=== PATIENT | male | born 1965 | race Caucasian/White ===

== ENCOUNTER 2023-04-26 07:14 | Day surgery (SDC) | payer OTHER, MEDICAID ==
[2023-04-26] VITALS (9 sets, daily range): BP systolic 106–128; BP diastolic 64–79; PULSE 78–87; RESP 10–15; TEMP 98.1; O2SAT 93–99
[~2023-04-26] VITALS: Ht 182.9 cm; Wt 106.6 kg
[~2023-04-26 07:14] MED LIST: CIME1TAB7 PO; CYCL-614 PO; GEMF-66 PO; HYDR-4798 PO; ICOS1CAP OR; INSU100I33 SC; LISI10TA34 PO; METO25TA93 PO; MORP15TA PO
[2023-04-26] MEDS ORDERED: LIDOCAINE 2%HCL (LOCAL ANESTH.) INJ 20ML MDV ONE (07:51)
[2023-04-26] MEDS ORDERED: IODIXANOL 320MG/ML 100ML BTL IV ONE (07:51)
[2023-04-26] MEDS ORDERED: HEPARIN SODIUM (PORCINE) 5000 UNITS/ML 1ML VIAL ONE (08:04)
[2023-04-26] MEDS ORDERED: VERAPAMIL 2.5MG/ML INJ 2ML VIAL IV ONE (08:04)
[2023-04-26] MEDS ORDERED: ANGIOMAX 250 MG VIAL IV ONE (08:04)
[2023-04-26] MEDS ORDERED: fentaNYL CITRATE 100 MCG/2 ML VL ONE (08:04)
[2023-04-26] MEDS ORDERED: SODIUM CHL 0.9% 0 ML ONE (08:05)
[2023-04-26] MEDS ORDERED: MIDAZOLAM HCL 2MG/2ML 2ml VIAL (1mg/ml) ONE (08:05)
[2023-04-26] MEDS: ACETAMINOPHEN 500 MG TAB PO ONE ×2 (10:54→18:27)
== END 2023-04-26 11:25 | disposition home or self-care (01) ==
LOC: CATH 07:14
PROVIDERS: ATTEND Internal Medicine
DX: R94.39 Abnormal result of other cardiovascular function study (principal); I25.119 Atherosclerotic heart disease of native coronary artery with unspecified angina pectoris; I10 Essential (primary) hypertension; E78.5 Hyperlipidemia, unspecified; E10.9 Type 1 diabetes mellitus without complications; Z79.4 Long term (current) use of insulin; Z79.899 Other long term (current) drug therapy; Z98.890 Other specified postprocedural states; Z87.891 Personal history of nicotine dependence
CPT/HCPCS: 82962; 93306; 93458; C1725; C1769; C1894; J1644; J2250; J3010; J7030; Q9967; 99152

== ENCOUNTER 2023-12-23 18:31 | Inpatient (IN) | payer OTHER, MEDICAID ==
[~2023-12-23] VITALS: Ht 182.9 cm; Wt 103.8 kg
[~2023-12-23 18:31] MED LIST changes: -ICOS1CAP OR; +ICOS1CAP PO
--- NOTE | 2023-12-23 18:44 | ECG ---
[facility] Test Date: 2023-12-23 Test Time: 18:31:57 Pat Name: MCKENZIE POLANCO Department: ED Room: 0208T Gender: M Supervisor Coremaker: SAMANTHA : 1965 Requested By: AUDI JOHNSON Order Number: [id number] Reading MD: Gumaro Shelton Measurements Intervals [place] Rate: 122 P: 48 MA: 123 QRS: 58 QRSD: 99 T: 66 QT: 309 QTc: 441 Interpretive Statements Sinus tachycardia Probable left atrial enlargement Low voltage, extremity leads Abnormal R-wave progression, late transition Electronically Signed On 12-24-2023 9:44:37 PDT by Gumaro Shelton Please click the below link to view image of tracing.
--- NOTE | 2023-12-23 18:44 | ED.PDOC ---
HPI Comments 58 y.o male with PMH of DM, hyperlipidemia, HTN, CAD, presents to the ED via EMS for a chief complaint of chest pain associated with SOB that started yesterday at 10am. Patient reports pain starts in the epigastric region, radiates up to his chest, described as a pressure sensation and is associated with lower back pain, nausea and vomiting today. Patient took 324mg ASA prior to calling 911 and received 0.4mg Nitroglycerin by EMS bringing pain level down from 9/10 to 7/10 o n the pain scale. Patient and mother are both currently experiencing flu like symptoms, patient has a productive cough, white phlegm sputum, and an intermittent fever for a couple of days. EMS reports patient was tachycardiac on 12 lead 118, BS 136, BP of 123/72. Upon ED arrival, patient is febrile at 103.2 F. Time Seen by MD: 18:28 Reviewed Notes: Nurses Notes, Pulverizer Notes, Medications, Allergies Allergies: Coded Allergies: Statins (Verified Allergy, Intermediate, 04/23/23) Uncoded Allergies: carrots (Allergy, Mild, 04/23/23) Home Meds Reported Medications Insulin Degludec (Tresiba) 100 Unit/Ml Inj, 90 UNIT SC DAILY for DM, INJ 04/23/23 Cyclobenzaprine HCl (Cyclobenzaprine Hydrochlo) 5 Mg Tab, 5 MG PO DAILY for MUSCLE RELAXANT, TAB 04/23/23 Morphine Sulfate (Morphine Sulfate) 15 Mg Tab, 15 MG PO DAILY for PAIN MANAGEMENT, TAB 04/23/23 Hydrocodone-Acetaminophen (Hydrocodone Bitartrate/AC 10-325 mg) 1 Tab Tab, 1 TAB PO TID PRN for PAIN SCALE 7 THRU 10, TAB 04/23/23 Cimetidine (Tagamet Hb) 200 Mg Tab, 300 MG PO DAILY for GERD, TAB 04/23/23 Epa Ethyl Sarah (VASCEPA) 1 Gm Cap, 1 GM OR BID for CHOLESTEROL, CAP 04/23/23 Gemfibrozil (Gemfibrozil) 600 Mg Tab, 600 MG PO BID for CHOLESTEROL 04/23/23 Lisinopril (Lisinopril) 10 Mg Tab, 10 MG PO DAILY for HTN, TAB 04/23/23 Metoprolol Succinate (Metoprolol Succinate Er) 25 Mg Tab, 1 TAB PO DAILY for HTN 04/23/23 Information Source: Patient, Emergency Med Personnel Mode of Arrival: EMS Severity: Moderate Timing: Days (1) Duration: Since onset Prehospital treatment: 12 Lead EKG, Custody Assistant, NTG Quality: Pressure Onset: At Rest Cardiac Risk Factors: Hyperlipidemia, HTN, Diabetes PE Risk Factors: None History of: None Modifying Factors: Nothing Associated Signs and Symptoms: SOB, Abdominal Pain, N/V, Back Pain Past Medical History PAST MEDICAL HISTORY: CAD, DM, High Lipids, HTN Surgical History: CABG Family History Family History: Family hx of DM, Family hx of heart vandana, Family hx of HTN Social History Smoker: Non-Smoker Alcohol: Denies ETOH Use Drugs: Denies Drug Use Lives In: Home Constitutional: denies: chills, diaphoresis, fatigue, fever, malaise, sweats, weakness, others EENTM: denies: blurred vision, double vision, ear bleeding, ear discharge, ear drainage, ear pain, ear ringing, eye pain, eye redness, hearing loss, mouth pain, mouth swelling, nasal discharge, nose bleeding, nose congestion, nose pain, photophobia, tearing, throat pain, throat swelling, voice changes, others Respiratory: reports: cough, SOB at rest, shortness of breath; denies: hemoptysis, orthopnea, SOB with excertion, stridor, wheezing, others Cardiovascular: reports: chest pain; denies: dizzy spells, diaphoresis, Dyspnea on exertion, edema, irregular heart beat, left arm pain, lightheadedness, palpitations, PND, syncope, others Gastrointestinal: reports: abdominal pain, nausea, vomiting; denies: abdomen distended, blood streaked bowels, constipated, diarrhea, dysphagia, difficulty swallowing, hematemesis, melena, poor appetite, poor fluid intake, rectal bleeding, rectal pain, others Genitourinary: denies: burning, dysuria, flank pain, frequency, hematuria, incontinence, penile discharge, penile sore, pain, testicle pain, testicle swell ing, urgency, others Neurological: denies: dizziness, fainting, headache, left sided numbness, left sided weakness, numbness, paresthesia, pre-existing deficit, right sided numbness, right sided weakness, seizure, speech problems, tingling, tremors, weakness, others Musculoskeletal: reports: back pain; denies: gout, joint pain, joint swelling, muscle pain, muscle stiffness, neck pain, others Integumetry: denies: bruises, change in color, change in hair/nails, dryness, laceration, lesions, lumps, rash, wounds, others Allergic/Immunocompromised: denies: Difficulty Healing, Frequent Infections, Hives, Itching, others Hematologic/Lymphatic: denies: anemia, blood clots, easy bleeding, easy bruising, swollen glands, others Endocrine: denies: excessive hunger, excessive sweating, excessive thirst, excessive urination, flushing, intolerance to cold, intolerance to heat, unexplained weight gain, unexplained weight loss, others Psychiatric: denies: anxiety, bipolar disorder, depression, hopeless, panic disorder, schizophrenia, sleepless, suicidal, others All Other Systems: Reviewed and Negative Physical Exam General Appearance: Moderate Distress HEENT: Normal ENT Inspection, Pharynx Normal, TMs Normal Neck: Full Range of Motion, Non-Tender, Normal, Normal Inspection Respiratory: Chest Non-Tender, Lungs Clear, No Accessory Muscle Use, No Respiratory Distress, Normal Breath Sounds Cardiovascular: No Edema, No JVD, No Murmur, No Gallop, Tachycardia Breast Exam: Deferred Gastrointestinal: No Organomegaly, Non Tender, No Pulsatile Mass, Normal Bowel Sounds, Soft Genitalia: Deferred Pelvic: Deferred Rectal: Deferred Extremities: No calf tenderness, Normal capillary refill, Normal inspection, Normal range of motion, Non-tender, No pedal edema Musculoskeletal : Apperance: Normal Neurologic: Alert, duty officer II-XII nml as Tested, Motor Weakness, Normal Affect, Normal Mood, No Sensory Deficits Cerebellar Function: Normal Reflexes: Normal Skin: Dry, Normal Color, Warm Lymphatic: No Adenopathy EKG EKG : Pulse Rate (adult): 122 Cardiac Rhythm: ST Was a procedure done? Was a procedure done?: No CP Differential Dx Differential Diagnosis: WA, Sinus Tachycardia Differential Diagnosis: Angina, Chest Wall Pain, Cholelithiasis, Costochondritis, Esophageal reflux/spasm, Pericarditis X-Ray, Labs, Meds, VS Vital Signs Date Time Temp Pulse Resp B/P (MAP) Pulse Ox O2 Delivery O2 Flow Rate FiO2 12/23/23 18:44 122 12/23/23 18:38 103.2 119 18 123/72 (89) 95 12/23/23 18:31 122 Lab Test 12/23/23 19:31 12/23/23 18:44 Range/Units Lactic Acid Level 1.6 0.4-2.0 mmol/L Troponin I High Sensitivity 5 5 </=54 ng/L White Blood Count 20.9 H 4.4-10.8 10^3/uL Red Blood Count 5.09 4.5-5.90 10^6/uL Hemoglobin 14.0 13.5-17.5 g/dL Hematocrit 41.9 41.0-53.0 % Mean Corpuscular Volume 82.4 80.0-100.0 fL Mean Corpuscular Hemoglobin 27.4 L 28.0-32.0 pg Mean Corpuscular Hemoglobin Concent 33.3 32.0-36.0 g/dL Red Cell Distribution Width 14.0 11.8-14.3 % Platelet Count 414 140-450 10^3/uL Mean Platelet Volume 7.3 6.9-10.8 fL Neutrophils (%) (Auto) 86.3 H 37.0-80.0 % Lymphocytes (%) (Auto) 7.1 L 10.0-50.0 % Monocytes (%) (Auto) 6.3 0.0-12.0 % Eosinophils (%) (Auto) 0.0 0.0-7.0 % Basophils (%) (Auto) 0.3 0.0-2.0 % Neutrophils # (Auto) 18.0 H 1.6-8.6 10 ^3/uL Lymphocytes # (Auto) 1.5 0.4-5.4 10 ^3/uL Monocytes # (Auto) 1.3 0-1.3 10 ^3/uL Eosinophils # (Auto) 0 0-0.8 10 ^3/uL Basophils # (Auto) 0.1 0-0.2 10 ^3/uL Nucleated Red Blood Cells 0.0 % D-Dimer, Quantitative 0.45 0.0-0.49 mg/L FEU Sodium Level 138 136-145 mmol/L Potassium Level 4.0 3.5-5.1 mmol/L Chloride Level 102 98-107 mmol/L Carbon Dioxide Level 26 20-31 mmol/L Anion Gap 10 5-15 Blood Urea Nitrogen 10 9-23 mg/dL Creatinine 1.08 0.700-1.30 mg/dL Glomerular Filtration Rate Calc 80 >90 mL/min BUN/Creatinine Ratio 9.3 L 10.0-20.0 Serum Glucose 126 H 74-106 mg/dL Calcium Level 9.7 8.7-10.4 mg/dL B-Type Natriuretic Peptide 24.68 0-100 pg/mL Current Medications Medications (Trade) Dose Ordered Sig/Lashae Route Start Time Stop Time Status Last Admin Sodium Chloride 1,000 ml @ 150 mls/hr [id number] ONCE IV 12/23/23 18:45 12/24/23 01:24 12/23/23 19:05 The chest x-ray is negative The CBC shows an elevated white blood cell count of 20.9. The rest of the CBC is within normal limits The patient was bolused with normal saline at 1 L bolus Blood cultures x2 were drawn. The lactic acid level is pending After blood cultures were drawn, the patient was started on Rocephin 1 g IV piggyback The patient was also given acetaminophen 650 mg p.o. There is a concern of sepsis secondary to the fact that the patient was somewhat tachycardic and significantly febrile The patient will be hydrated with normal saline per sepsis protocol The patient is being admitted to the hospitalist Images Reviewed?: Images reviewed and evaluated by me Time of 1ST Reevaluation: 18:44 Reevaluation 1ST: Unchanged Patient Education/Counseling: Diagnosis, Treatment, Prognosis Family Education/Counseling: No Family Present Departure 1 Departure Time of Disposition: 20:32 Impression: Primary Impression: Sepsis Qualified Codes: A41.9 - Sepsis, unspecified organism Additional Impression: Acute chest pain Disposition: ADMITTED INPATIENT Admit to: Tele Condition: Fair Critical Care Note Critical Care Time?: Yes (35 min-critical care time only) Stability Stability form required: Yes Unstable for transfer: Telemetry monitoring (Telemetry monitoring required), ED Physician Assesment (Clinical assesment) Heart Score Heart Score: Heart Score Response (Comments) Value History Moderate Suspicious 1 EKG Repolarization Disturb 1 Age 45-64 1 Risk Factors >3 or Hx ASHD 2 Troponin Normal limit 0 Total 5 I personally scribed for AUDI JOHNSON MD ([email or web address]) on 12/23/23 at 18:44. Elec tronically submitted by Maritza Cerda ([facility]). AUDI JOHNSON MD Dec 23, 2023 18:44
[2023-12-23] MEDS: SODIUM CHLORIDE 0.9% 1,000 ML IV ONE (19:05)
--- NOTE | 2023-12-23 19:17 | DVH ---
CHEST RADIOGRAPH Indication:cp Technique: Single frontal view of the chest was obtained Comparison: None FINDINGS: Lines and Tubes: None Lungs: No focal consolidation. Pleura: No effusion. No pneumothorax. Cardiomediastinal contours: Unremarkable Bones: No acute osseous abnormality. IMPRESSION: No acute cardiopulmonary disease.
[2023-12-23 19:21] LABS: Basophils # (auto) 0.1 10 ^3/uL (0-0.2); Basophils % (auto) 0.3 % (0.0-2.0); Eosinophils # (auto) 0 10 ^3/uL (0-0.8); Hematocrit 41.9 % (41.0-53.0); Lymphocytes # (auto) 1.5 10 ^3/uL (0.4-5.4); Lymphocytes % (auto) 7.1 % (10.0-50.0); Mean Corpuscular Hemoglobin 27.4 pg (28.0-32.0); Mean Corpuscular Hgb Conc. 33.3 g/dL (32.0-36.0); Mean Corpuscular Volume 82.4 fL (80.0-100.0); Monocytes # (auto) 1.3 10 ^3/uL (0-1.3); Monocytes % (auto) 6.3 % (0.0-12.0); Neutrophils % (auto) 86.3 % (37.0-80.0); Platelet Count (auto) 414 10^3/uL (140-450); Red Blood Cells 5.09 10^6/uL (4.5-5.90); White Blood Cell 20.9 10^3/uL (4.4-10.8)
[2023-12-23 19:29] LABS: Chloride 102 mmol/L (98-107); Sodium 138 mmol/L (136-145)
[2023-12-23 19:30] LABS: Anion Gap 10 (5-15); Calcium 9.7 mg/dL (8.7-10.4); Carbon Dioxide 26 mmol/L (20-31)
[2023-12-23 19:35] LABS: BUN/Creatinine Ratio 9.3 (10.0-20.0); Blood Urea Nitrogen 10 mg/dL (9-23); Glucose 126 mg/dL (74-106)
[2023-12-23] MEDS ORDERED: ONDANSETRON HCL 4 MG/2 ML VIAL IV PRN (20:30)
[2023-12-23] MEDS ORDERED: MORPHINE SULFATE INJ 2 MG/ml SYRG IV PRN (20:30)
[2023-12-23] MEDS ORDERED: NITROGLYCERIN 0.4 MG SL TAB SL PRN (20:30)
[2023-12-23 20:43] VITALS: PULSE 115; RESP 15; O2SAT 95
[2023-12-23] MEDS: ACETAMINOPHEN 325 MG TAB PO ONE (20:46)
[2023-12-23 21:21] LABS: Urine Bacteria FEW /hpf (None Seen); Urine Blood Negative /uL (Negative); Urine Budding Yeast OCCASIONAL /hpf (None Seen); Urine Clarity Turbid (Clear); Urine Color Yellow (Yellow); Urine Mucus FEW (None Seen); Urine Protein, UAD 1+ (Negative); Urine Specific Gravity 1.019 (1.001-1.035); Urine Urobilinogen Normal (Negative); Urine WBC 383 /hpf (0 - 3); Urine pH 7.5 (5.0-9.0)
[2023-12-23] MEDS: cefTRIAXone 1GM/50ML D5W 50 ML IV ONE (21:32)
[2023-12-23] MEDS: SODIUM CHLORIDE 0.9% 1,000 ML IV SCH (21:51)
[2023-12-23] MEDS ORDERED: ATORVASTATIN 20 MG TAB PO SCH (22:00)
--- NOTE | 2023-12-23 22:00 | DVH ---
INDICATION: shortness of breath Comparison: No prior CTAs of the chest for comparison. TECHNIQUE: Multidetector CTA of the chest was performed of the chest with 100 cc of intravenous contr ast. PULMONARY ANGIOGRAPHY PROTOCOL was utilized using a bolus-tracking technique centered on the keila n pulmonary artery. Axial, coronal and sagittal multiplanar and MIP reformats were performed. Radiation Dose Information: CT Dose: CTDI volume is 28.56 mGy. Dose-length product is 996.04 mGy*cm omnipaque 300: 100 cc The dose indicators for CT are the volume Computed Tomography (CT) Dose Index (CTDIvol) and the Dose Length Product (DLP), and are measured in units of mGy and mGy-cm, respectively. These indicators are not patient dose, but values generated from the CT scanner acquisition factors. The report includes radiation exposure data for exposures received during this examination. Findings: Pulmonary artery: Normal caliber of the pulmonary artery. No large central or large segmental pulmo nary embolism. Lower neck: Normal thyroid. Lungs: No focal consolidation, pulmonary mass, or suspicious pulmonary nodule. Heart/Vascular Structures: Normal heart size. Normal caliber and enhancement of the aorta. Sternal wi re sutures in place Lymph Nodes: No adenopathy Pleura: No pleural effusion or significant pneumothorax. Musculoskeletal: No acute osseous abnormality. Upper abdomen: Limited portions of the upper abdomen are unremarkable. IMPRESSION: 1. No pulmonary embolism. 2. No findings of pulmonary artery hypertension. 3. No acute intrathoracic abnormality.
[2023-12-23 23:06] LABS: COVID19 ANTIGEN SOFIA FIA NEGATIVE (NEGATIVE); Rapid Influenza A Negative (Negative); Rapid Influenza B Negative (Negative)
[2023-12-23 23:59] VITALS: PULSE 74; RESP 18; O2SAT 97
[2023-12-24] VITALS (8 sets, daily range): BP systolic 113–148; BP diastolic 56–90; PULSE 74–116; RESP 14–18; TEMP 97.9–100.5; O2SAT 95–99
[2023-12-24] MEDS ORDERED: NALO1TAB4 PO (00:16)
[2023-12-24] MEDS ORDERED: PANT40T PO (00:16)
[2023-12-24] MEDS ORDERED: CYCL-611 PO (00:16)
[2023-12-24] MEDS ORDERED: ASPI81CH59 PO (00:16)
[2023-12-24] MEDS ORDERED: MORP1TAB12 PO (00:16)
[2023-12-24] MEDS ORDERED: MET25T PO (00:16)
[2023-12-24] MEDS ORDERED: FURO20TA4 PO (00:16)
[2023-12-24] MEDS ORDERED: POTA-215 PO (00:16)
--- NOTE | 2023-12-24 00:17 | DVHHP2 ---
Admitting Diagnosis: chest pain, sepsis, uti History of Present Illness History Source: Patient Exam Limitations: No limitations HPI Mr. 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 Patient reports onset x 2 days ago associated with nausea denies any vomiting. Patient reports dysuria without hematuria, patient also endorses he has had a productive cough with fevers of 102-103 F. Patient denies dyspnea, abdominal pain, diarrhea, constipation, dizziness, melena. Home Meds Reported Medications Cyclobenzaprine HCl (Cyclobenzaprine Hydrochlo) 10 Mg Tab, 1 TAB PO TID 12/24/23 Morphine Sulfate (Morphine Sulfate Cr) 15 Mg Tab, 1 TAB PO BID 12/24/23 Potassium Chloride (Klor-Con M10) 10 Meq Tab, 1 TAB PO DAILY PRN for HYPOKALEMIA TAKE 1 TABLET WITH LASIX. 12/24/23 Furosemide (Furosemide) 20 Mg Tab, 1 TAB PO DAILYPRN PRN for EDEMA 12/24/23 Metoprolol Tartrate (Lopressor) 25 Mg Tb, 1 TAB PO HS 12/24/23 Naloxegol Oxalate (Movantik) 25 Mg Tab, 1 TAB PO DAILY 12/24/23 Pantoprazole Sodium Sesquihydr (Pantoprazole Sodium) 40 Mg Tab, 1 TAB PO DAILY 12/24/23 Aspirin (Aspirin Low Dose) 81 Mg Chw, 81 MG PO DAILY, TAB.CHEW 12/24/23 Insulin Degludec (Tresiba) 100 Unit/Ml Inj, 114 UNIT SC DAILY for DM, INJ 04/23/23 Hydrocodone-Acetaminophen (Hydrocodone Bitartrate/AC 10-325 mg) 1 Tab Tab, 1 TAB PO TID PRN for PAIN SCALE 7 THRU 10, TAB 04/23/23 Cimetidine (Tagamet Hb) 200 Mg Tab, 400 MG PO DAILY for GERD, TAB 04/23/23 Epa Ethyl Sarah (VASCEPA) 1 Gm Cap, 1 GM PO BID for CHOLESTEROL, CAP 04/23/23 Gemfibrozil (Gemfibrozil) 600 Mg Tab, 600 MG PO BID for CHOLESTEROL 04/23/23 Past Medical History Cardiac: CAD, HTN, Hyperlipidemia Pulmonary: No pertinent Hx Central Nervous System: No pertinent Hx GI: No pertinent Hx Hemotology/Oncology: No pertinent Hx Hepatobiliary: No pertinent Hx Psychiatric: No pertinent Hx Musculoskeletal: No pertinent Hx Rheumotologic: No pertinent Hx Infectious Disease: No peritnent Hx ENT: No pertinent Hx Renal/: No pertinent Hx Endocrine: NIDDM Dermatology: No pertinent Hx Past Surgical History: CABG Smoker: No Hx (Negative) Alocohol: None Drugs: None Lives with: With family Domestic Violence: Neg Review of Systems Constitutional: No symptom reported Ears, Nose, & Throat: No symptom reported Eyes: No symptom reported Pulmonary/Respiratory: Cough Cardiovascular: Chest Pain Gastrointestinal: No symptom reported Genitourinary: No symptom reported Musculoskeletal: No symptom reported Skin: No symptom reported Psychiatric: No symptom reported Endocrine: No symptom reported Hemotologic/Lymphatic: No symptom reported H&P Exam Vital Signs Vital Signs Date Time Temp Pulse Resp B/P (MAP) Pulse Ox O2 Delivery O2 Flow Rate FiO2 12/23/23 22:54 101.2 12/23/23 22:00 110 23 143/71 (95) 92 12/23/23 20:43 Room Air* 0 21 General Appeara: Well developed, Well nourished, Normal Appearance Head Exam: Normal inspection Neck Exam: Normal inspection, Non-tender, Normal alignment Eye Exam: bilateral eye Normal inspection, bilateral eye PERRL, bilateral eye EOMI Ear Exam: bilateral ear Auricle normal Nasal Exam: Normal inspection Mouth: Normal Inspection Pulmonary/Respiratory: Normal inspection, Normal breath sounds, Chest non-tende r, Lungs clear Cardiovascular/Chest: Normal inspection, Regular rate, Normal Rhythm Peripheral Pulses: 2+ dorsalis pedis (R), 2+ dorsalis pedis (L), 2+ Radial (R), 2+ Radial (L) Abdominal Exam: Normal bowel sounds, Soft, No tenderness Abdominal Pain Onset Location: Epigastric (radiates to chest ) Rectal Exam: Deferred SEWER TAPPER Exam: Normal hearing, Normal speech, PERRL Neuro/Mental St: Alert, Oriented Appearance: Appropriate appearance, Appropriate insight Eye contact/ Speech: Cooperative, Good eye contact, Normal speech Thoughts/Psych: Normal thought pattern Skin Exam: Normal inspection, Normal color, Warm/dry Labs/Xrays Labs Test 12/23/23 22:08 12/23/23 20:56 12/23/23 19:31 12/23/23 18:44 Range/Units Influenza Type A Antigen Negative Negative Influenza Type B Antigen Negative Negative SARS-CoV-2 Antigen (Rapid) Negative NEGATIVE Urine Color Yellow Yellow Urine Clarity Turbid H Clear Urine pH 7.5 5.0-9.0 Urine Specific [place] 1.019 1.001-1.035 Urine Protein 1+ H Negative Urine Ketones Negative Negative Urine Blood Negative Negative /uL Urine Nitrite Negative Negative Urine Bilirubin Negative Negative Urine Urobilinogen Normal Negative mg/dL Urine Leukocyte Esterase 3+ Negative /uL Urine RBC 3 0 - 3 /hpf Urine WBC 383 0 - 3 /hpf Urine Squamous Epithelial Cells Few <5 /hpf Urine Bacteria Few H None Seen /hpf Urine Mucus Few None Seen Urine Yeast (Budding) Occasional None Seen /hpf Urine Glucose Normal Normal mg/dL Lactic Acid Level 1.6 0.4-2.0 mmol/L Troponin I High Sensitivity 5 </=54 ng/L White Blood Count 20.9 H 4.4-10.8 10^3/uL Red Blood Count 5.09 4.5-5.90 10^6/uL Hemoglobin 14.0 13.5-17.5 g/dL Hematocrit 41.9 41.0-53.0 % Mean Corpuscular Volume 82.4 80.0-100.0 fL Mean Corpuscular Hemoglobin 27.4 L 28.0-32.0 pg Mean Corpuscular Hemoglobin Concent 33.3 32.0-36.0 g/dL Red Cell Distribution Width 14.0 11.8-14.3 % Platelet Count 414 140-450 10^3/uL Mean Platelet Volume 7.3 6.9-10.8 fL Neutrophils (%) (Auto) 86.3 H 37.0-80.0 % Lymphocytes (%) (Auto) 7.1 L 10.0-50.0 % Monocytes (%) (Auto) 6.3 0.0-12.0 % Eosinophils (%) (Auto) 0.0 0.0-7.0 % Basophils (%) (Auto) 0.3 0.0-2.0 % Neutrophils # (Auto) 18.0 H 1.6-8.6 10 ^3/uL Lymphocytes # (Auto) 1.5 0.4-5.4 10 ^3/uL Monocytes # (Auto) 1.3 0-1.3 10 ^3/uL Eosinophils # (Auto) 0 0-0.8 10 ^3/uL Basophils # (Auto) 0.1 0-0.2 10 ^3/uL Nucleated Red Blood Cells 0.0 % D-Dimer, Quantitative 0.45 0.0-0.49 mg/L FEU Sodium Level 138 136-145 mmol/L Potassium Level 4.0 3.5-5.1 mmol/L Chloride Level 102 98-107 mmol/L Carbon Dioxide Level 26 20-31 mmol/L Anion Gap 10 5-15 Blood Urea Nitrogen 10 9-23 mg/dL Creatinine 1.08 0.700-1.30 mg/dL Glomerular Filtration Rate Calc 80 >90 mL/min BUN/Creatinine Ratio 9.3 L 10.0-20.0 Serum Glucose 126 H 74-106 mg/dL Calcium Level 9.7 8.7-10.4 mg/dL B-Type Natriuretic Peptide 24.68 0-100 pg/mL Assessment/Plan Problem List: (1) Acute chest pain (2) Sepsis (3) UTI (urinary tract infection) Plan 58 yo male with known history of hypertension, CAD, Hyperlipidemia, CABG, DM presents with chest pain and shortness of breath. Patient with heart score of 4. 1. Chest pain rule out ACS 2. Sepsis 3. UTI Admit telemetry unit Cardiology consultation, 2D echocardiogram, serial troponin levels, ASA, allergy to statin reconcile home medications Blood cultures x2, urine culture, IV antibiotic Ceftriaxone Monitor BMP, CBC, lactic level GI ppx Protonix DVT ppx Lovenox Discussed all above with patient who verbalizes agreement and understanding of care plan . All questions were answered. Discussed assessment and care plan with supervising MD. Plan discussed with: Patient, Other Code Visit Code Visit Total Time (mins): 45 Additional Comments Additional Comments Additional Comments Patient is seen and evaluated. Patient's chart is reviewed. Patient seen and evaluated by nurse practitioner this morning. I agree with the nurse practitioner's evaluation, documentation, assessment and care plan as outlined. JESUS BEAUCHAMP Dec 24, 2023 00:16 VITO SEWELL MD Dec 24, 2023 12:45
[2023-12-24 05:47] LABS: Basophils # (auto) 0.1 10 ^3/uL (0-0.2); Basophils % (auto) 0.5 % (0.0-2.0); Eosinophils # (auto) 0 10 ^3/uL (0-0.8); Eosinophils % (auto) 0.1 % (0.0-7.0); Hematocrit 42.3 % (41.0-53.0); Hemoglobin 13.8 g/dL (13.5-17.5); Lymphocytes # (auto) 1.7 10 ^3/uL (0.4-5.4); Lymphocytes % (auto) 8.7 % (10.0-50.0); Mean Corpuscular Hgb Conc. 32.7 g/dL (32.0-36.0); Mean Corpuscular Volume 82.5 fL (80.0-100.0); Monocytes # (auto) 1.5 10 ^3/uL (0-1.3); Monocytes % (auto) 7.4 % (0.0-12.0); Neutrophils # (auto) 16.7 10 ^3/uL (1.6-8.6); Neutrophils % (auto) 83.3 % (37.0-80.0); Platelet Count (auto) 382 10^3/uL (140-450); Red Blood Cells 5.12 10^6/uL (4.5-5.90)
[2023-12-24 06:12] LABS: Anion Gap 10 (5-15); Calcium 9.1 mg/dL (8.7-10.4); Carbon Dioxide 25 mmol/L (20-31); Chloride 104 mmol/L (98-107); Glucose 155 mg/dL (74-106); Potassium 3.4 mmol/L (3.5-5.1); Sodium 139 mmol/L (136-145)
[2023-12-24 06:19] LABS: BUN/Creatinine Ratio 11.8 (10.0-20.0); Blood Urea Nitrogen 12 mg/dL (9-23)
[2023-12-24] MEDS: ENOXAPARIN SOD 40 MG/0.4 ML SYRINGE SC SCH (09:26)
[2023-12-24] MEDS: PANTOPRAZOLE 40 MG/10 ML VIAL INJ IV SCH (09:28)
[2023-12-24] MEDS: ACETAMINOPHEN 325 MG TAB PO PRN (09:29)
[2023-12-24] MEDS: cefTRIAXone 1GM/50ML D5W 50 ML IV SCH (09:30)
[2023-12-24] MEDS: GEMFIBROZIL 600 MG TAB PO SCH (09:30)
[2023-12-24] MEDS: ASPirin-EC 81 mg tab PO SCH (09:31)
[2023-12-24] MEDS: EPA ETHYL ESTER 1 GM PO SCH (09:32)
[2023-12-24] MEDS ORDERED: FAMOTIDINE 20 MG TAB PO SCH (10:00)
--- NOTE | 2023-12-24 10:00 | ECG ---
[facility] Test Date: 2023-12-23 Test Time: 19:38:21 Pat Name: MCKENZIE POLANCO Department: ER Room: 0208T A Gender: M Preparation Supervisor: JOSE : 1965 Requested By: AUDI JOHNSON Order Number: [id number] Reading MD: Gumaro Shelton Measurements Intervals [place] Rate: 119 P: 71 DE: 119 QRS: 62 QRSD: 94 T: 89 QT: 304 QTc: 428 Interpretive Statements Sinus tachycardia Probable left atrial enlargement Low voltage with right axis deviation Abnormal R-wave progression, late transition Electronically Signed On 12-30-2023 10:04:04 PST by Gumaro Shelton Please click the below link to view image of tracing.
[2023-12-24] MEDS: FINASTERIDE 5 MG TAB PO ONE (12:45)
--- NOTE | 2023-12-24 12:46 | DVHINCON2 ---
Family History: Diabetes mellitus G8 MOTHER G8 FATHER, FH: CHF (congestive heart failure) G8 FATHER, FH: stroke G8 MOTHER Hypertension G8 MOTHER G8 FATHER, Allergies: Coded Allergies: Statins (Verified Allergy, Intermediate, 04/23/23) Uncoded Allergies: carrots (Allergy, Mild, 04/23/23) Home Meds Reported Medications Cyclobenzaprine HCl (Cyclobenzaprine Hydrochlo) 10 Mg Tab, 1 TAB PO TID 12/24/23 Morphine Sulfate (Morphine Sulfate Cr) 15 Mg Tab, 1 TAB PO BID 12/24/23 Potassium Chloride (Klor-Con M10) 10 Meq Tab, 1 TAB PO DAILY PRN for HYPOKALEMIA TAKE 1 TABLET WITH LASIX. 12/24/23 Furosemide (Furosemide) 20 Mg Tab, 1 TAB PO DAILYPRN PRN for EDEMA 12/24/23 Metoprolol Tartrate (Lopressor) 25 Mg Tb, 1 TAB PO HS 12/24/23 Naloxegol Oxalate (Movantik) 25 Mg Tab, 1 TAB PO DAILY 12/24/23 Pantoprazole Sodium Sesquihydr (Pantoprazole Sodium) 40 Mg Tab, 1 TAB PO DAILY 12/24/23 Aspirin (Aspirin Low Dose) 81 Mg Chw, 81 MG PO DAILY, TAB.CHEW 12/24/23 Insulin Degludec (Tresiba) 100 Unit/Ml Inj, 114 UNIT SC DAILY for DM, INJ 04/23/23 Hydrocodone-Acetaminophen (Hydrocodone Bitartrate/AC 10-325 mg) 1 Tab Tab, 1 TAB PO TID PRN for PAIN SCALE 7 THRU 10, TAB 04/23/23 Cimetidine (Tagamet Hb) 200 Mg Tab, 400 MG PO DAILY for GERD, TAB 04/23/23 Epa Ethyl Sarah (VASCEPA) 1 Gm Cap, 1 GM PO BID for CHOLESTEROL, CAP 04/23/23 Gemfibrozil (Gemfibrozil) 600 Mg Tab, 600 MG PO BID for CHOLESTEROL 04/23/23 Current Medications Current Medications Medications (Trade) Dose Ordered Sig/Lashae Route PRN Reason Start Time Stop Time Status Last Admin Nitroglycerin (Ntrostat Sublingual) 0.4 mg Q5MINP PRN SL FOR CHEST PAIN 12/23/23 20:30 Morphine Sulfate 2 mg Q30M PRN IV FOR CHEST PAIN 12/23/23 20:30 Ceftriaxone Sodium 50 ml @ 100 mls/hr DAILY IV 12/24/23 10:00 12/24/23 09:30 Ondansetron HCl (Zofran) 4 mg Q6HPRN PRN IV NAUSEA / VOMITING 12/23/23 20:30 Aspirin (Ecotrin Enteric Coated Tablet) 81 mg DAILY PO 12/24/23 10:00 12/24/23 09:31 Atorvastatin Calcium (Lipitor) 40 mg HS PO 12/23/23 22:00 12/24/23 05:05 DC Enoxaparin Sodium (Lovenox) 40 mg DAILY SC 12/24/23 10:00 12/24/23 09:26 Acetaminophen/ Hydrocodone Bitart (Lupton 5/325MG Tab) 1 tab Q6HPRN PRN PO PAIN SCALE 1 THRU 6 12/23/23 20:30 Famotidine (Pepcid Tablet) 20 mg BID PO 12/24/23 10:00 12/24/23 05:19 DC Acetaminophen (Tylenol Tablet) 650 mg Q6HPRN PRN PO TEMP GREATER THAN 100.4 12/23/23 20:30 12/24/23 09:29 Sodium Chloride 1,000 ml @ 100 mls/hr Q10H IV 12/23/23 20:30 12/24/23 06:18 Gemfibrozil (Lopid Tablet) 600 mg BID PO 12/24/23 10:00 12/24/23 09:30 Metoprolol Tartrate (Lopressor Tablet) 25 mg BID PO 12/24/23 22:00 Patient Own Medication 1 gm BID PO 12/24/23 10:00 Patient Own Medication 1 tab DAILY PO 12/24/23 10:00 Pantoprazole Sodium (Protonix) 40 mg DAILY IV 12/24/23 10:00 12/24/23 11:53 DC 12/24/23 09:28 Vital Signs Vital Signs Date Time Temp Pulse Resp B/P (MAP) Pulse Ox O2 Delivery O2 Flow Rate FiO2 12/24/23 09:29 100.5 12/24/23 08:43 105 18 127/75 (92) 96 12/24/23 08:00 Room Air* 0 21 Labs/Diagnostic Data Labs Test 12/24/23 11:12 12/24/23 04:52 12/24/23 00:15 12/23/23 22:08 Range/Units Troponin I High Sensitivity 6 </=54 ng/L White Blood Count 20.0 H 4.4-10.8 10^3/uL Red Blood Count 5.12 4.5-5.90 10^6/uL Hemoglobin 13.8 13.5-17.5 g/dL Hematocrit 42.3 41.0-53.0 % Mean Corpuscular Volume 82.5 80.0-100.0 fL Mean Corpuscular Hemoglobin 27.0 L 28.0-32.0 pg Mean Corpuscular Hemoglobin Concent 32.7 32.0-36.0 g/dL Red Cell Distribution Width 14.0 11.8-14.3 % Platelet Count 382 140-450 10^3/uL Mean Platelet Volume 7.4 6.9-10.8 fL Neutrophils (%) (Auto) 83.3 H 37.0-80.0 % Lymphocytes (%) (Auto) 8.7 L 10.0-50.0 % Monocytes (%) (Auto) 7.4 0.0-12.0 % Eosinophils (%) (Auto) 0.1 0.0-7.0 % Basophils (%) (Auto) 0.5 0.0-2.0 % Neutrophils # (Auto) 16.7 H 1.6-8.6 10 ^3/uL Lymphocytes # (Auto) 1.7 0.4-5.4 10 ^3/uL Monocytes # (Auto) 1.5 H 0-1.3 10 ^3/uL Eosinophils # (Auto) 0 0-0.8 10 ^3/uL Basophils # (Auto) 0.1 0-0.2 10 ^3/uL Nucleated Red Blood Cells 0.0 % Sodium Level 139 136-145 mmol/L Potassium Level 3.4 L 3.5-5.1 mmol/L Chloride Level 104 98-107 mmol/L Carbon Dioxide Level 25 20-31 mmol/L Anion Gap 10 5-15 Blood Urea Nitrogen 12 9-23 mg/dL Creatinine 1.02 0.700-1.30 mg/dL Glomerular Filtration Rate Calc 86 >90 mL/min BUN/Creatinine Ratio 11.8 10.0-20.0 Serum Glucose 155 H 74-106 mg/dL Calcium Level 9.1 8.7-10.4 mg/dL Lactic Acid Level 1.4 0.4-2.0 mmol/L Influenza Type A Antigen Negative Negative Influenza Type B Antigen Negative Negative SARS-CoV-2 Antigen (Rapid) Negative NEGATIVE Test 12/23/23 20:56 12/23/23 18:44 Range/Units Urine Color Yellow Yellow Urine Clarity Turbid H Clear Urine pH 7.5 5.0-9.0 Urine Specific [place] 1.019 1.001-1.035 Urine Protein 1+ H Negative Urine Ketones Negative Negative Urine Blood Negative Negative /uL Urine Nitrite Negative Negative Urine Bilirubin Negative Negative Urine Urobilinogen Normal Negative mg/dL Urine Leukocyte Esterase 3+ Negative /uL Urine RBC 3 0 - 3 /hpf Urine WBC 383 0 - 3 /hpf Urine Squamous Epithelial Cells Few <5 /hpf Urine Bacteria Few H None Seen /hpf Urine Mucus Few None Seen Urine Yeast (Budding) Occasional None Seen /hpf Urine Glucose Normal Normal mg/dL D-Dimer, Quantitative 0.45 0.0-0.49 mg/L FEU B-Type Natriuretic Peptide 24.68 0-100 pg/mL Microbiology Date/Time Source Procedure Growth Status 12/23/23 20:56 Voided Urine Urine Culture - Preliminary Resulted CODIE ROQUE MD Dec 24, 2023 12:46
--- NOTE | 2023-12-24 13:41 | DVHSR ---
APPROVED REPORT EXAM: Two-dimensional and M-mode echocardiogram with Doppler and color Doppler. Blood Pressure: 137/77 mmHg INDICATION Chest Pain Surgery/Intervention CABG: RISK FACTORS Height: 6'0", Weight: 228 DIMENSIONS LVDd4.1 (3.8-5.7cm)LA (2D)3.2 (1.9-4.0cm)Aortic Root3.2 (2.0-3.7cm) LVDs2.7 (2.5-4.0cm)LA (MM) (1.9-4.0cm)Aortic Cusp Exc1.7 (1.5-2.0cm) EF (%) 55.0 (55-70%)Rt. Atrium3.0 (1.9-4.0cm)Asc. Aorta cm IVSd1.2 (0.7-1.1cm)RV (D) (1.8-2.4cm) PWd1.1 (0.7-1.1cm) Mitral Valve MitralMitral Stenosis E wave0.67m/sMV Mean GR.mmHg A wave0.69m/sMV Peak GR.mmHg E/A ratio1.02D MVAcm2 DECEL [id number] 1/2 Timems Aortic Valve Aortic ValveAortic Stenosis V10.88m/Alyson Mean GR.4mmHg V21.40m/Alyson Peak GR.8mmHg LVOT Diameter2.2 (1.8-2.4cm)Doppler AVA2.39cm2 Pulmonic Valve V21.18m/s Other Information Quality : LimitedRhythm : Technically limited study due to body habitus and CABG. Conclusion lvef 55% postop setpum moderate LVH
[2023-12-24] MEDS: FLUTICASONE PROP NASAL SPR 0.05 % (50MCG) 16GM EACHNOSTRI SCH (14:02)
[2023-12-24] MEDS: TAMSULOSIN HYDROCHLORIDE 0.4 MG CAP PO SCH (17:37)
[2023-12-24] MEDS: guaiFENesin 200 MG/10 ML UD GT PRN (20:48)
[2023-12-24] MEDS: METOPROLOL TARTRATE 25 MG TAB PO SCH (22:04)
[2023-12-24] MEDS: HYDROcodone-ACET 5/325MG TAB PO PRN (22:10)
[2023-12-24] MEDS: ACCU-CHEK COMFORT CURVE STRIP VI SCH (22:15)
[2023-12-25] VITALS (8 sets, daily range): BP systolic 122–148; BP diastolic 59–72; PULSE 75–97; RESP 14–18; TEMP 37.2; O2SAT 94–96
[2023-12-25 05:59] LABS: Basophils # (auto) 0 10 ^3/uL (0-0.2); Basophils % (auto) 0.3 % (0.0-2.0); Eosinophils # (auto) 0.1 10 ^3/uL (0-0.8); Eosinophils % (auto) 0.9 % (0.0-7.0); Hematocrit 36.6 % (41.0-53.0); Hemoglobin 12.3 g/dL (13.5-17.5); Lymphocytes # (auto) 1.7 10 ^3/uL (0.4-5.4); Lymphocytes % (auto) 13.9 % (10.0-50.0); Mean Corpuscular Hemoglobin 27.7 pg (28.0-32.0); Mean Corpuscular Hgb Conc. 33.5 g/dL (32.0-36.0); Mean Corpuscular Volume 82.8 fL (80.0-100.0); Monocytes # (auto) 0.8 10 ^3/uL (0-1.3); Monocytes % (auto) 6.7 % (0.0-12.0); Neutrophils # (auto) 9.4 10 ^3/uL (1.6-8.6); Neutrophils % (auto) 78.2 % (37.0-80.0); Platelet Count (auto) 373 10^3/uL (140-450); Red Blood Cells 4.42 10^6/uL (4.5-5.90); Red Cell Distribution Width 13.8 % (11.8-14.3)
[2023-12-25 06:15] LABS: Anion Gap 8 (5-15); Carbon Dioxide 27 mmol/L (20-31); Chloride 105 mmol/L (98-107); Potassium 3.4 mmol/L (3.5-5.1); Sodium 140 mmol/L (136-145)
[2023-12-25 06:21] LABS: BUN/Creatinine Ratio 14.6 (10.0-20.0); Blood Urea Nitrogen 14 mg/dL (9-23); Glucose 52 mg/dL (74-106)
[2023-12-25] MEDS: FINASTERIDE 5 MG TAB PO SCH (09:45)
[2023-12-25] MEDS ORDERED: CIPR500T4 PO (15:54)
[2023-12-25] MEDS ORDERED: BENZ200C64 PO (15:57)
[2023-12-25] MEDS ORDERED: DEXT1SYP9 PO (15:57)
--- NOTE | 2023-12-25 15:58 | DVHDS2 ---
Discharge Summary Date of Admission Dec 23, 2023 at 20:28 Date of Discharge: Dec 25, 2023 Labs/Diagnostic Data: Laboratory Results Test 12/25/23 11:31 12/25/23 05:17 12/24/23 11:12 12/24/23 00:15 POC Glucose 147 mg/dl (70-106) White Blood Count 12.0 10^3/uL (4.4-10.8) Red Blood Count 4.42 10^6/uL (4.5-5.90) Hemoglobin 12.3 g/dL (13.5-17.5) Hematocrit 36.6 % (41.0-53.0) Mean Corpuscular Volume 82.8 fL (80.0-100.0) Mean Corpuscular Hemoglobin 27.7 pg (28.0-32.0) Mean Corpuscular Hemoglobin Concent 33.5 g/dL (32.0-36.0) Red Cell Distribution Width 13.8 % (11.8-14.3) Platelet Count 373 10^3/uL (140-450) Mean Platelet Volume 7.1 fL (6.9-10.8) Neutrophils (%) (Auto) 78.2 % (37.0-80.0) Lymphocytes (%) (Auto) 13.9 % (10.0-50.0) Monocytes (%) (Auto) 6.7 % (0.0-12.0) Eosinophils (%) (Auto) 0.9 % (0.0-7.0) Basophils (%) (Auto) 0.3 % (0.0-2.0) Neutrophils # (Auto) 9.4 10 ^3/uL (1.6-8.6) Lymphocytes # (Auto) 1.7 10 ^3/uL (0.4-5.4) Monocytes # (Auto) 0.8 10 ^3/uL (0-1.3) Eosinophils # (Auto) 0.1 10 ^3/uL (0-0.8) Basophils # (Auto) 0 10 ^3/uL (0-0.2) Nucleated Red Blood Cells 0.0 % Sodium Level 140 mmol/L (136-145) Potassium Level 3.4 mmol/L (3.5-5.1) Chloride Level 105 mmol/L (98-107) Carbon Dioxide Level 27 mmol/L (20-31) Anion Gap 8 (5-15) Blood Urea Nitrogen 14 mg/dL (9-23) Creatinine 0.96 mg/dL (0.700-1.30) Glomerular Filtration Rate Calc 92 mL/min (>90) BUN/Creatinine Ratio 14.6 (10.0-20.0) Serum Glucose 52 mg/dL (74-106) Calcium Level 9.0 mg/dL (8.7-10.4) Troponin I High Sensitivity 6 ng/L (</=54) Lactic Acid Level 1.4 mmol/L (0.4-2.0) Test 12/23/23 22:08 12/23/23 20:56 12/23/23 18:44 Influenza Type A Antigen Negative (Negative) Influenza Type B Antigen Negative (Negative) SARS-CoV-2 Antigen (Rapid) Negative (NEGATIVE) Urine Color Yellow (Yellow) Urine Clarity Turbid (Clear) Urine pH 7.5 (5.0-9.0) Urine Specific Bennett 1.019 (1.001-1.035) Urine Protein 1+ (Negative) Urine Ketones Negative (Negative) Urine Blood Negative /uL (Negative) Urine Nitrite Negative (Negative) Urine Bilirubin Negative (Negative) Urine Urobilinogen Normal mg/dL (Negative) Urine Leukocyte Esterase 3+ /uL (Negative) Urine RBC 3 /hpf (0 - 3) Urine WBC 383 /hpf (0 - 3) Urine Squamous Epithelial Cells Few /hpf (<5) Urine Bacteria Few /hpf (None Seen) Urine Mucus Few (None Seen) Urine Yeast (Budding) Occasional /hpf (None Urine Glucose Normal mg/dL (Normal) D-Dimer, Quantitative 0.45 mg/L FEU (0.0-0.49) B-Type Natriuretic Peptide 24.68 pg/mL (0-100) Other Laboratory Tests 12/25/23 05:17 Brief Hx & Hospital Course: Mr. 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 Patient reports onset x 2 days ago associated with nausea denies any vomiting. Patient reports dysuria without hematuria, patient also endorses he has had a productive cough with fevers of 102-103 F. Patient denies dyspnea, abdominal pain, diarrhea, constipation, dizziness, melena. He is admitted and underwent evaluations for his symptoms. Patient noted to have acute bronchitis causing his shortness of breath therefore treated appropriately with medications. His symptoms have improved. Patient is also noted to have urinary tract infection for which she received a antibiotics. Noted to have enlarged prostate and advised to have a follow up with the urologist for further management of his prostate enlargement and to prevent further urinary tract infections. Otherwise overall patient clinically remained stable not having other issues back to baseline normal status. Therefore he is being discharged home in stable condition. Patient verbalized understanding his hospital diagnosis, treatment he received, discharge medications, discharge instructions and agree with the discharge follow-up plan of care. Condition at Discharge: Stable Final Diagnosis/Problems List Acute urinary tract infection diabetes mellitus type 2 , acute bronchitis Discharge Disposition: Home Discharge Instruct/Medications Diet: Consistent carbohydrate, Cardiac 2g Na,low cholest Activity: No Restrictions, As Tolerated Follow Up/Referral: Primary care physician next week for urinary tract infection and referral to urologist for evaluation of enlarged prostate Medications: As prescribed and home medications per discharge medication list New Medications: Benzonatate (Benzonatate) 200 Mg Cap 1 CAP PO TID, #14 CAP Ciprofloxacin Hcl (Ciprofloxacin Hcl) 500 Mg Tab 1 TAB PO BID, #10 TAB Dextromethorphan-Guaifenesin (Robitussin-Dm) 10 Ml Sr 10 ML PO Q6HPRN PRN, #120 SYP Continued Medications: Aspirin (Aspirin Low Dose) 81 Mg Chw 81 MG PO DAILY, TAB.CHEW Cimetidine (Tagamet Hb) 200 Mg Tab 400 MG PO DAILY for GERD, TAB Cyclobenzaprine HCl (Cyclobenzaprine Hydrochlo) 10 Mg Tab 1 TAB PO TID Epa Ethyl Sarah (Vascepa) 1 Gm Cap 1 GM PO BID for CHOLESTEROL, CAP Furosemide (Furosemide) 20 Mg Tab 1 TAB PO DAILYPRN PRN for EDEMA Gemfibrozil (Gemfibrozil) 600 Mg Tab 600 MG PO BID for CHOLESTEROL Hydrocodone-Acetaminophen (Hydrocodone Bitartrate/AC 10-325 mg) 1 Tab Tab 1 TAB PO TID PRN for PAIN SCALE 7 THRU 10, TAB Insulin Degludec (Tresiba) 100 Unit/Ml Inj 114 UNIT SC DAILY for DM, INJ Metoprolol Tartrate (Lopressor) 25 Mg Tb 1 TAB PO HS Morphine Sulfate (Morphine Sulfate Cr) 15 Mg Tab 1 TAB PO BID Naloxegol Oxalate (Movantik) 25 Mg Tab 1 TAB PO DAILY Pantoprazole Sodium Sesquihydr (Pantoprazole Sodium) 40 Mg Tab 1 TAB PO DAILY Potassium Chloride (Klor-Con M10) 10 Meq Tab 1 TAB PO DAILY PRN for HYPOKALEMIA TAKE 1 TABLET WITH LASIX. Discharge Statement: "Patient was advised to return to the ER or call 911 if any headaches, dizziness, shortness of breath, chest pain, abdominal pain, bleeding, fevers, or worsening of medical condition. Patient was counseled about treatment plan, medications, possible side effects, patientverbalized understanding. All questions were answered to the best of my ability. This discharge took greater then 30 minutes in planning, reviewing documentation, counseling the patient, and discussing with other team members." ASSESSMENT ASSESSMENT Assessment Acute urinary tract infection diabetes mellitus type 2 , acute bronchitis VITO SEWELL MD Dec 25, 2023 15:58
== END 2023-12-25 17:39 | disposition home or self-care (01) | DRG 872 ==
LOC: EDUNIT# 18:31 → EDBD 18:31 → ER 18:33 → TELE 20:28 → TELE-CENTR 23:15 → UNDODISIN 12-25 17:39
PROVIDERS: ADMIT Hospitalist; ATTEND Hospitalist
DX: A41.9 Sepsis, unspecified organism (principal); N39.0 Urinary tract infection, site not specified; E11.9 Type 2 diabetes mellitus without complications; E78.5 Hyperlipidemia, unspecified; I10 Essential (primary) hypertension; J20.9 Acute bronchitis, unspecified; I25.10 Atherosclerotic heart disease of native coronary artery without angina pectoris; Z20.822 Contact with and (suspected) exposure to COVID-19; Z91.018 Allergy to other foods; Z95.1 Presence of aortocoronary bypass graft; Z88.8 Allergy status to other drugs, medicaments and biological substances; Z82.49 Family history of ischemic heart disease and other diseases of the circulatory system; Z83.3 Family history of diabetes mellitus; Z87.891 Personal history of nicotine dependence; Z79.84 Long term (current) use of oral hypoglycemic drugs; Z82.3 Family history of stroke; Z79.4 Long term (current) use of insulin; Z79.82 Long term (current) use of aspirin; Z79.899 Other long term (current) drug therapy
CPT/HCPCS: 36415; 71045; 71260; 80048; 81001; 82962; 83605; 83880; 84484; 85025; 85379; 87040; 87086; 87088; 87186; 87205; 87426; 87804; 93005; 93306; 99291; G0378; J2470